=== PATIENT | male | born 1975 | race Caucasian/White ===

== ENCOUNTER 2017-02-18 16:12 | Emergency (ER) | payer BC ==
[2017-02-18 16:23] VITALS: BP 162/109
[2017-02-18] MEDS ORDERED: LIDOCAINE HCL/EPINEPHRINE 30 ML VIAL IJ ONE (16:41)
[2017-02-18] MEDS ORDERED: PROMETHAZINE HCL 25 MG/ML AMPUL IM ONE (17:19)
[2017-02-18] MEDS ORDERED: MORPHINE SULFATE 10 MG/ML SYRG IM ONE (17:19)
[2017-02-18] MEDS ORDERED: AMOX TR/POTASSIUM CLAVULANATE 875 MG TABLET PO ONE (17:20)
[2017-02-18] MEDS ORDERED: PROMETHAZINE HCL 25 MG/ML AMPUL ONE (17:22)
[2017-02-18] MEDS ORDERED: MORPHINE SULFATE 4 MG/ML SYRG ONE (17:22)
[2017-02-18] MEDS ORDERED: AMOX TR/POTASSIUM CLAVULANATE 875 MG TABLET ONE (17:33)
[2017-02-18] MEDS ORDERED: HYDROcodone/ACETAMINOPHEN 1 EACH TABLET PO ONE (17:33)
[2017-02-18] MEDS ORDERED: HYDROcodone/ACETAMINOPHEN 1 EACH TABLET ONE (17:33)
--- NOTE | 2017-02-18 17:33 | ERNOTE ---
Integumentary HPI - Narrative Date of Service: 02/18/17 - General Presenting Symptoms: abscess Time Seen by Provider: 02/18/17 16:29 - Immun/Allergies/Home Medications Immunizations: IMMUNIZATION HX Immunizations Up to Date Yes History of Influenza Vaccine Yes Hx Pneumococcal Vaccination No Allergies/Adverse Reactions: Allergies Allergy/AdvReac Type Severity Reaction Status Date / Time No Known Allergies Allergy Verified 02/18/17 16:23 Home Medications: HOME MEDICATIONS Amox Tr/Potassium Clavulanate [Augmentin 875-125 Tablet] 875 mg PO Q12H #20 tab 02/18/17 [Last Taken Unknown] Eplerenone 50 mg PO DAILY 02/18/17 [Last Taken Unknown] HYDROcodone/ACETAMINOPHEN [[place] 5-325] 1 - 2 tab PO Q6H PRN #20 tab 02/18/17 [ Last Taken Unknown] - History of Present Illness Narrative: 41 y/o male ambulatory to the ED for pain in his coccyx region due to an inflamed cystic lesion. He reports that he began having pain a few days ago, but today the pain got bad enough that he could not bend down to get his work boots on. His reports that it has been bothering him for 2 weeks. He had similar symptoms several years ago. The lesion opened and drained on its own. Prior Treatment: Denies: recently seen Review of Systems - Review of Systems Constitutional: Absent: fever, chills, malaise EYE: Present: no symptoms reported ENT: Present: no symptoms reported Respiratory: Present: no symptoms reported Cardiology: Present: no symptoms reported Gastrointestinal/Abdominal: Absent: nausea, vomiting, abdominal pain Genitourinary: Present: no symptoms reported Musculoskeletal: Present: back pain. Absent: neck pain, joint pain Skin: Present: lesions, lumps, change in color. Absent: rash Neurological: Absent: headache, dizziness/light-headedness, weakness, numbness, tingling Endocrine: Present: no symptoms reported Hematologic/Lymphatic: Absent: easy bruising, easy bleeding Psych: Present: no symptoms reported - Patient's Past Medical History Patient History - Medical: GERD, Other Patient History - Cardiac/Respiratory: No pertinent hx Patient History - Cancer: No Hx of Cancer Patient History - Surgical Procedures: Other Patient History - Other: None - Family History Grandfather-Maternal Family History - Medical: No pertinent hx Family History - Cardiac/Respiratory: CVA/Stroke, Myocardial Infarction Grandmother-Maternal Family History - Medical: No pertinent hx Family History - Cardiac/Respiratory: CVA/Stroke, Myocardial Infarction - Social History Living Situations: spouse Abuse History: No History of abuse Psych History: No pertinent hx Smoking Status: Current every day smoker Have you smoked in the past 12 months: Yes Do you dip or chew tobacco: No Alcohol Use: heavy Drug Use: none - Immunizations Immunizations Up to Date: Yes Hx Pneumococcal Vaccination: No History of Influenza Vaccine: Yes Physical Exam - Physical Exam General Appearance: Present: wd/wn, alert, mild distress, other - Unable to sit d/t pain Respiratory: Present: no respiratory distress, no accessory muscle use Cardiovascular/Chest: Present: normal peripheral pulses Back Exam: Present: normal range of motion, no vertebral tenderness Extremity Exam: Present: normal inspection, normal range of motion Neurological Exam: Present: alert, oriented, normal mood/affect, no motor/ sensory deficits Skin Exam: Present: normal color, warm/dry, other - Large inflammed cystic lesion at superior aspect of gluteal cleft ED Progress - Vital Signs Patient's Vital Signs:: I have reviewed the patient's vital signs. Vital Signs: Vital Signs 02/18/17 16:17 Temperature 37.6 C H Pulse Rate 101 H Respiratory 15 Rate Blood Pressure 162/109 O2 Sat by Pulse 97 Oximetry - Progress/Reassessment Chief Complaint: Back Pain Progress:: Improved Procedures Upper Medial Buttock Anesthesia: Lidocaine w/ Epi I & D Prep: betadine prep Blade Size: 11 Findings and Actions: purulent drainage moderate, probed/breakup loculation Complications: Pt jasson procedure well Departure Clinical Impression: Pilonidal cyst with abscess - Departure Disposition: Home Follow Up Needed Condition: Stable Instructions: Form - Excuse from Work, School, or Physical Activity, Incision and Drainage of a Pilonidal Cyst, Care After Additional Instructions: Change dressing as needed Return for worsening pain, vomiting, fevers or other concerning symptoms Contact the clinic on Monday for follow up with a surgeon Your pain medication can cause constipation - you may need a laxative Referrals: Jimmie Reeder MD [Staff Physician] - Prescriptions: Amox Tr/Potassium Clavulanate [Augmentin 875-125 Tablet] 875 mg PO Q12H #20 tab HYDROcodone/ACETAMINOPHEN [[place] 5-325] 1 - 2 tab PO Q6H PRN #20 tab PRN Reason: Pain
== END 2017-02-18 17:44 | disposition home or self-care (01) ==
LOC: ER 16:12
PROC: 0H98XZZ Drainage of Buttock Skin, External Approach (ICD-10-PCS; principal; 2017-02-18)
DX: L05.01 Pilonidal cyst with abscess (principal); K21.9 Gastro-esophageal reflux disease without esophagitis; F17.200 Nicotine dependence, unspecified, uncomplicated

== ENCOUNTER 2017-02-22 05:52 | Day surgery (SDC) | payer BC ==
[2017-02-22] MEDS ORDERED: RINGER'S SOLUTION,LACTATED 1,000 ML IV PRN ×2 (06:00→08:48)
[2017-02-22] MEDS ORDERED: ceFAZolin SODIUM 2 GM in DEXTROSE 5 % IN WATER 50 ML IV PRN ×2 (06:00)
[2017-02-22] MEDS ORDERED: RINGER'S SOLUTION,LACTATED 1,000 ML IV ONE ×2 (06:16→08:17)
[2017-02-22] MEDS ORDERED: BUPIVACAINE HCL/EPINEPHRINE 50 ML VIAL IJ ONE ×2 (07:25)
[2017-02-22] MEDS ORDERED: MUPIROCIN 22 APPL TUBE TP ONE ×2 (07:32→07:55)
[2017-02-22] MEDS ORDERED: oxyCODONE HCL/ACETAMINOPHEN 1 TAB TABLET PO ONE (08:48)
[2017-02-22 10:51] VITALS: BP 119/76
--- NOTE | 2017-02-22 19:36 | OR ---
Operative Report - Dictated Report Narrative: OPERATIVE REPORT DATE OF OPERATION: 02/22/2017 PREOPERATIVE DIAGNOSIS: Pilonidal cyst with abscess POSTOPERATIVE DIAGNOSIS: Same (pathology pending) OPERATION: Excision of pilonidal disease SURGEON: Jimmie Reeder MD ANESTHESIA: Gen. endotracheal (prone) Felix Culver CRNA INDICATIONS FOR PROCEDURE: The patient is a 41-year-old male presented to the emergency room on 02/18/2017. He had incision and drainage of a pilonidal abscess by Wilfredo Neal NP. Some additional debridement was done in the office yesterday however the patient will require general anesthesia for excision of the area. FINDINGS: Extensive pilonidal disease with abscess, all gross disease resected. NARRATIVE OF PROCEDURE: The patient was identified preoperatively and prior to the administration of anesthetic a multidisciplinary timeout was observed. The patient was placed supine on the cart SCDs were applied, 2 g of intravenous Ancef administered, general endotracheal anesthetic administered. The patient was then transferred to the prone position on the operating table with appropriate padding and monitoring. The buttocks were retracted with tape. The sacrum was then prepped with Betadine solution and isolated with 4 sterile towels. The remainder the patient was covered with a sterile disposable drape. The area of induration and expected pilonidal disease was outlined with a marking pen. This included a hockey stick extension to the superior right to include the previous incision site. The skin incision was made sharply and dissection carried in the normal-appearing subcutaneous tissue. Starting inferiorly the pilonidal disease was excised circumferentially and elevated up to the abscess cavity at the cranial end. The abscess cavity was curetted to remove obvious disease. The wall of the cavity was then likewise excised with cautery back to normal-appearing subcutaneous tissue. Specimen was submitted to pathology. The wound was inspected for residual disease. There was none grossly apparent. The wound was irrigated with saline. Hemostasis appeared complete. After receiving a correct sponge needle and instrument count attention was turned to closing and packing the wound. The inferior end of the incision was closed with subcutaneous sutures of #1 antibiotic-containing Vicryl. These obliterated all space. 2 vertical mattress sutures of 3-0 nylon were used to approximate the skin. The upper end of the wound and previous abscess cavity were then packed with 2 inch iodoform gauze. A dressing of 4 x 4's and Medipore tape was applied. The operative procedure was terminated at this point. The patient tolerated the anesthetic and procedure well without complication. There was no measurable blood loss. 0.5% Marcaine with epinephrine was used for local anesthetic infiltration. The patient was returned to the supine position without incident. He was then transferred back to the recovery room awake and extubated in stable condition. The patient remained stable throughout appeared postoperative observation. He had minimal discomfort. He was up without assistance and tolerated a general diet. I shared the operative findings with him and his . He was discharged home with instructions to keep the current dressing dry and intact. He is not to engage in hazardous activity today. He was given a prescription for Percocet 5/325 mg #30 1-2 po Q4-6 hrs prn pain. He has phone numbers to call if needed for uncontrolled pain or problems with the dressing. A return office appointment was made for tomorrow for initial packing change. Reviewed in electronically signed
== END 2017-02-22 05:53 | disposition home or self-care (01) ==
LOC: AMB 05:52
PROVIDERS: ATTEND Surgery
PROC: 0JB90ZZ Excision of Buttock Subcutaneous Tissue and Fascia, Open Approach (ICD-10-PCS; 2017-02-22)
PROC: 0JB90ZZ Excision of Buttock Subcutaneous Tissue and Fascia, Open Approach (ICD-10-PCS; principal; 2017-02-22 07:00)
DX: L05.01 Pilonidal cyst with abscess (principal); K21.9 Gastro-esophageal reflux disease without esophagitis; F17.200 Nicotine dependence, unspecified, uncomplicated; Z68.24 Body mass index [BMI] 24.0-24.9, adult